=== PATIENT | male | born 1945 | race Caucasian/White ===

== ENCOUNTER 2019-01-26 05:26 | Day surgery (SDC) | payer OTHER ==
[~2019-01-26] VITALS: Ht 180.3 cm; Wt 81.6 kg
--- NOTE | ~2019-01-26 | O ---
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 PROCEDURE: Revision open reduction and internal fixation, right ulna fracture with removal of failed plate and screws. New revision open reduction and internal fixation and application of bone graft. SURGEON: Bill Naidu MD INDICATIONS: This 73-year-old gentleman has been very active all his life. He had a right forearm fracture as a teenager, treated with open reduction and internal fixation of the radius united, but the ulna failed to unite and the plate went on to fracture. He has been living with this for many years, but has ongoing discomfort and has difficulty now with routine activities. We have elected to try revision surgery hoping to achieve a union in this chronically nonunited fracture. He understands the potential risks as well as benefits. DESCRIPTION OF PROCEDURE: The patient was taken to the operating room where he was placed under general anesthesia. Prophylactic intravenous antibiotics were administered. The right arm and hand were meticulously prepped and draped, and the tourniquet was inflated to 250 mmHg. A dorsal longitudinal skin incision made through his old surgical scar. This was carried through subcutaneous tissues and fascia exposing the mid ulna, marked bony hypertrophy made dissection difficult. This was chipped away with osteotomes and a small micro saw. The fracture plate was identified, two screws proximally and two screws distally were removed. The plate was encased in hypertrophic bone, but was freed up and removed. The fracture was found to be slightly mobile but in satisfactory alignment. The area of fracture was debrided removing the hypertrophic fibrous tissue. The canal was opened proximally and distally. A trough was created in the bone, allowing insertion of the bone graft. A new 6-hole plate was contoured and seemed to fit nicely. The canal and open trough were then grafted using several contoured matchsticks, a cortical cancellous graft, which had been taken from the hypertrophic bone around the area. In addition, 5 mL of demineralized putty allograft was used. This seemed to fill the central void nicely and was packed around the fracture slightly proximally [address] [address] OPERATIVE REPORT Name: STEFAN MOORE J Room #: 150-7 [facility]..#: [id number] Admission: 01/26/19 ������������������ Attend Phys: Bill Naidu MD Discharge: ������������������ Date of : 41 Report #: [id number] and distally. The 6-hole plate was then secured using 5 compression screws and 1 locking screw, which was placed in one of the previous screw holes where it seemed to have satisfactory purchase and locked into position nicely. Intraoperative x-rays were obtained with a C-arm, which revealed anatomic alignment of the fracture and satisfactory compression and bone graft across the area of nonunion. The tourniquet was deflated. Good hemostasis was established. The fascia was closed with 2-0 Monocryl. The subcutaneous tissues were closed with 2-0 Monocryl. The skin was closed with skin bindu. A sterile dressing was applied. The patient was awakened and returned to recovery room in good condition. ��������������������������������������������� ���������������������������������������� By: ��������������������������������������������� 1135 1224 Bill Naidu MD /nt
[~2019-01-26 05:26] MED LIST: ASPIR 8181 MG PO; ATORVASTATIN CA40 MG PO; CENTRUM SILVER1 EAC2 PO; CO Q-10200 MG PO; GLUCOSAMINE1000 MG PO; HYDROCHLOROTH12.5 M1 PO; LOSARTAN POTAS100 MG PO; MAGNESIUM500 MG PO; POTASSIUM GLUC500 MG PO; TURMERIC538 MG PO; VITAMIN D35000 UNIT PO
[2019-01-26 07:50] LABS: CALCIUM 9.2 mg/dL (8.5-10.1); CREATININE 0.8 mg/dL (0.7-1.3); POTASSIUM 4.3 mmol/L (3.5-5.1)
[2019-01-26 08:11] VITALS: BP 93/74
--- NOTE | 2019-01-26 08:48 | EKG ---
[address] [address] ELECTROCARDIOGRAM REPORT Name: STEFAN MOORE Room #: 150-7 [facility]#: [id number] ������������������ Admission: 01/26/19 ������������������ Attend Phys: Bill Naidu MD Discharge: ������������������ Date of : 41 Report #: [id number] ����������������������������������������������������������������� [id number] THIS REPORT FOR: //name// [facility] Test Date: 2019-01-26 Test Time: 07:39:57 Pat Name: STEFAN MOORE Department: Room: 150 7 Gender: M [employer] Marker: FER : 1945 Requested By: Bill Naidu Order Number: [id number] MD: Gio Hou Measurements Intervals [place] Rate: 58 P: 46 AL: 182 QRS: 14 QRSD: 96 T: 35 QT: 403 QTc: 396 Interpretive Statements Sinus bradycardia Normal tracing No previous ECG available for comparison Electronically Signed On 01-26-2019 8:48:21 CDT by Gio Hou [email or web address] ��������������������������������������������� <ELECTRONICALLY SIGNED> ���������������������������������������� By: Gio Hou MD, [facility] ��������������������������������������������� 01/26/19 0848 [id number] [id number] Gio Hou MD, FACC /EPI
[2019-01-26 11:50] VITALS: BP 93/74
== END 2019-01-26 13:00 | disposition home or self-care (01) ==
LOC: TBA 05:26 → OR 05:26
PROVIDERS: Orthopaedic Surgery
DX: S52.201K Unspecified fracture of shaft of right ulna, subsequent encounter for closed fracture with nonunion (principal); X58.XXXD Exposure to other specified factors, subsequent encounter; Z87.81 Personal history of (healed) traumatic fracture; Z87.891 Personal history of nicotine dependence; I10 Essential (primary) hypertension; E78.00 Pure hypercholesterolemia, unspecified; Z98.890 Other specified postprocedural states; Z79.899 Other long term (current) drug therapy
CPT/HCPCS: 50010; 50101; 50341; 50347; 50386; 50951; 51014; 51122; 51412; 56525; 56667; 57091; 62110; 62900; 64039; 70005